=== PATIENT | male | born 1985 | race Caucasian/White ===

== ENCOUNTER 2016-12-19 15:19 | Emergency (ER) | payer SELFPAY ==
[~2016-12-19] VITALS: Ht 172.7 cm; Wt 70.5 kg
[2016-12-19 15:22] VITALS: BP 128/80; PULSE 64; TEMP 98.3
[2016-12-19] MEDS ORDERED: AMOXICILLIN875 MG PO (15:33)
== END 2016-12-19 15:49 | disposition home or self-care (01) ==
LOC: COL.ER 15:19
DX: J02.9 Acute pharyngitis, unspecified (principal); R59.0 Localized enlarged lymph nodes; F17.210 Nicotine dependence, cigarettes, uncomplicated
CPT/HCPCS: J8540

== ENCOUNTER 2017-07-10 22:16 | Emergency (ER) | payer SELFPAY ==
[~2017-07-10] VITALS: Ht 177.8 cm; Wt 72.7 kg
[~2017-07-10 22:16] MED LIST: AMOXICILLIN875 MG PO
[2017-07-10 22:18] VITALS: BP 170/79; TEMP 97.7
[2017-07-10] MEDS ORDERED: PEN-VEE K500 MG PO (22:43)
[2017-07-10] MEDS ORDERED: NORCO 325 MG-51 TAB PO (22:43)
[2017-07-10 22:58] VITALS: PULSE 89
== END 2017-07-10 22:59 | disposition home or self-care (01) ==
LOC: COL.ER 22:16
DX: K02.9 Dental caries, unspecified (principal); R68.84 Jaw pain

== ENCOUNTER 2021-11-24 15:50 | Emergency (ER) | payer SELFPAY ==
[~2021-11-24] VITALS: Ht 177.8 cm; Wt 70.5 kg
[~2021-11-24 15:50] MED LIST changes: +NORCO 325 MG-51 TAB PO; +PEN-VEE K500 MG PO
[2021-11-24 16:26] VITALS: TEMP 98.6
[2021-11-24 16:35] VITALS: BP 125/64; PULSE 78
== END 2021-11-24 17:00 | disposition home or self-care (01) ==
LOC: COL.ER 15:50
DX: S61.200A Unspecified open wound of right index finger without damage to nail, initial encounter (principal); Z28.310 Unvaccinated for COVID-19; W26.8XXA Contact with other sharp object(s), not elsewhere classified, initial encounter